=== PATIENT | female | born 1975 | race Caucasian/White ===

== ENCOUNTER 2021-11-02 16:33 | Emergency (ER) | payer MEDICARE, OTHER ==
[~2021-11-02] VITALS: Ht 175.3 cm; Wt 196.0 kg
[2021-11-02] MEDS ORDERED: GABAPENTIN300 MG PO (16:51)
[2021-11-02] MEDS ORDERED: SYMBICORT 80-10.2 GM INH ×2 (16:51→16:53)
[2021-11-02] MEDS ORDERED: IMITREX100 MG PO (16:52)
[2021-11-02] MEDS ORDERED: HYDROXYZINE HCL25 MG PO (16:52)
[2021-11-02] MEDS ORDERED: PROCHLORPERAZIN10 MG PO (16:52)
[2021-11-02] MEDS ORDERED: OMEPRAZOLE20 MG PO (16:53)
[2021-11-02] MEDS ORDERED: PRAZOSIN HCL5 MG PO (16:53)
[2021-11-02] MEDS ORDERED: CYCLOBENZAPRINE10 MG PO (16:53)
[2021-11-02] MEDS ORDERED: CYMBALTA60 MG PO (16:53)
[2021-11-02] MEDS ORDERED: LISINOPRIL10 MG PO (16:53)
[2021-11-02] MEDS ORDERED: VENTOLIN HFA18 GM INH (16:54)
[2021-11-02] MEDS ORDERED: ATORVASTATIN CA80 MG PO (16:54)
[2021-11-02] MEDS ORDERED: ARNUITY ELLIPT50 MCG IH (16:54)
[2021-11-02] MEDS ORDERED: NORTRIPTYLINE H75 MG PO (16:54)
[2021-11-02] MEDS ORDERED: DULOXETINE HCL60 MG PO (16:55)
[2021-11-02] MEDS ORDERED: PREDNISONE20 MG PO (18:35)
[2021-11-02] MEDS ORDERED: DOXYCYCLINE HY100 M3 PO (18:35)
== END 2021-11-02 18:46 | disposition home or self-care (01) ==
LOC: ED 16:33
DX: J44.9 Chronic obstructive pulmonary disease, unspecified (principal); I10 Essential (primary) hypertension; E78.5 Hyperlipidemia, unspecified; Z88.8 Allergy status to other drugs, medicaments and biological substances; Z79.899 Other long term (current) drug therapy
CPT/HCPCS: 71045; 94640; 99284-25; J1100; U0003

== ENCOUNTER 2023-07-31 06:36 | Day surgery (SDC) | payer MEDICARE, OTHER ==
[2023-07-27 08:15] VITALS: BP 143/83
[~2023-07-31] VITALS: Ht 175.3 cm; Wt 195.4 kg
[~2023-07-31 06:36] MED LIST: ARNUITY ELLIPT50 MCG IH; ATORVASTATIN CA80 MG PO; CYCLOBENZAPRINE10 MG PO; CYMBALTA60 MG PO; DOXYCYCLINE HY100 M3 PO; DULOXETINE HCL60 MG PO; GABAPENTIN300 MG PO; HYDROXYZINE HCL25 MG PO; IMITREX100 MG PO; LISINOPRIL10 MG PO; METFORMIN HCL500 M3 PO; NORTRIPTYLINE H75 MG PO; OMEPRAZOLE20 MG PO; PRAZOSIN HCL5 MG PO; PREDNISONE20 MG PO; PROCHLORPERAZIN10 MG PO; SYMBICORT 80-10.2 GM INH; VENTOLIN HFA18 GM INH
[2023-07-31 06:56] VITALS: BP 134/65
--- NOTE | 2023-07-31 09:01 | NUR ---
07/31/23 0901 Cleo Rodríguez 0840- PT ARRIVES TO PACU, REACTIVE TO STIMULI, SEMI MARTIN POSITION. PT STARTED COUGHING WITH PHLEGM, PT SAT UP AND SUCTIONED. TOLERATED WELL, SATS MAINTAINED MID 90'S WITH COUGHING. PT ON 2L O2 PER NC. ALL MONITORS APPLIED. ABD SOFT NON DISTENDED, LR INFUSING TO LFA. 0850- PT AWAKE AND HAVING CONVERSATION NOW. PT DRINKING APPLE JUICE, NO NAUSEA. PT PLACED ON ROOM AIR AT THIS TIME. 0900- PT DENIES PAIN AND NAUSEA. PT STATES "I'M WIDE AWAKE". VITAL SIGNS STABLE.
[2023-07-31 09:02] VITALS: BP 125/66
--- NOTE | 2023-07-31 10:10 | OR ---
[facility] [address], [place] [address] Signed DATE OF OPERATION: 07/31/2023 SURGEON: Sandy Munguia MD PREOPERATIVE DIAGNOSES: 1. Gastroesophageal reflux disease. 2. Nausea and vomiting. 3. Diabetes. 4. Obesity. POSTOPERATIVE DIAGNOSES: 1. Moderate sized hiatal hernia (43-37 cm). 2. GE junction at 37 cm. PROCEDURE: EGD with CLOtest and biopsies of the antrum. ESTIMATED BLOOD LOSS: None. INDICATIONS: Sowmya is a 48-year-old, obese, diabetic female, asked to see me for upper endoscopy. She has been having trouble with acid reflux and some nausea and vomiting. We had discussed the idea of diabetic gastroparesis. She is yet to have a solid phase gastric emptying scan. Her body mass index is 59. She had a colonoscopy in 2018 at the age of 43 at [facility] in [place], [place]. We do not have those results. She also had a laparoscopic cholecystectomy in [address] at the age of [address] Sarbjit Nunez at [facility] in [place], [place]. Dr. Nunez is now retired. Sowmya has a history of polysubstance abuse including methamphetamines. She asked that she did not receive any narcotics. She considers that a gateway drug for herself. In the office, I had given her a pamphlet on upper endoscopy. We had reviewed the nature of the test. There is risk including, but not limited to gas bloating, crampy abdominal pain, bleeding, perforation requiring surgery, and missed diagnosis. She also understands the need for monitored anesthesia care given her body mass index, very full face, heavy chest, neck and abdomen. She also understands without narcotics we would certainly need propofol infusion. In that regard, she received preoperative blood work and an EKG. She had expressed understanding and wished to proceed. PROCEDURE NOTE: Sowmya was taken into our endoscopy suite and placed in the supine semi-recumbent Electronically Signed By: SANDY MUNGUIA MD 07/31/23 1010 PATIENT NAME: SOWMYA OROZCO OPERATIVE REPORT DATE OF : 71 REPORT #: [id number] PHYSICIAN: SANDY MUNGUIA MD PCP: ERLINDA DUKES PA-C REPORT IS CONFIDENTIAL AND NOT TO BE RELEASED WITHOUT AUTHORIZATION [facility] [address], [place] [address] Signed position. The posterior oropharynx was anesthetized with lidocaine spray. She has very little in the way of . Our anesthesia provider used a mouth guard on the mandible. After this, a bite block was placed. She was given monitored anesthesia care with propofol infusion per our nurse speed operator. The adult gastroscope was introduced and advanced under direct visualization of the camera out into the duodenum. The duodenum and pyloric channel were unremarkable. Overall, the stomach really was unremarkable. We went ahead and took a biopsy from the antrum for pathologic review along with CLOtest. Upon retroflexion of the scope, we can easily see her moderate-sized hiatal hernia. It measured around 43-37 cm. However, she was a bit awake and moving around during the procedure. The scope was withdrawn up through the area of the GE junction, which was compliant without stricture. There were no gastric or esophageal varices. There was very minimal disruption to her Z-line. There was no Vieira's mucosa. No distal esophagitis. The middle and upper esophagus were unremarkable. After this, the gas was suctioned out and the gastroscope removed. Sowmya tolerated the procedure quite well. RECOMMENDATIONS: I will see Sowmya back in my office in 7 to 14 days to review her results. Her best option obviously would be to lose a significant amount of weight. Some of these patients do undergo gastric bypass surgery to correct the hiatal hernia as well as weight loss. Sandy Munguia MD ALB/MODL /[id number] cc: MACK Davila MD Copies: SANDY MUNGUIA MD ~ Electronically Signed By: SANDY MUNGUIA MD 07/31/23 1010 PATIENT NAME: SOWMYA OROZCO OPERATIVE REPORT DATE OF : 71 REPORT #: [id number] PHYSICIAN: SANDY MUNGUIA MD PCP: ERLINDA DUKES PA-C REPORT IS CONFIDENTIAL AND NOT TO BE RELEASED WITHOUT AUTHORIZATION
--- NOTE | 2023-07-31 11:23 | NUR ---
PT HOPEFUL FOR IDENTIFICATION OF CUASE OF DISCOMFORT. CONSENTED TO PRAYER. PRAYED FOR SUCCESSFUL PROCEDURE AND ONGOING HEALING.
--- NOTE | 2023-08-06 14:56 | PATH ---
[facility] [address] [place], [place] [address] Signed SPECIMEN(S): A ANTRUM/PYLORUS BIOPSY SPECIMEN SOURCE: A. ANTRUM/PYLORUS BIOPSY CLINICAL HISTORY: GERD, N/V, hiatal hernia. FINAL PATHOLOGIC DIAGNOSIS: Antrum/pylorus, biopsy: - Benign gastric type mucosa with focal slight chronic inflammation. - Negative for evidence of Helicobacter organisms on routine HE stain sections. JVR:cml MICROSCOPIC EXAMINATION: Histologic sections of all submitted blocks are examined by light microscopy. These findings, together with the gross examination, support the pathologic diagnosis. GROSS DESCRIPTION: The specimen, labeled and designated "Gideon Wang Nikita, stomach, antrum/pylorus biopsy," is received in formalin and consists of 1 white-jay soft tissue fragment measuring 0.3 x 0.4 cm is submitted entirely in (A1). MMA (under the direct supervision of a pathologist) The Gross Description was prepared using a voice recognition system. The report was reviewed for accuracy; however, sound-alike word errors, addition and/or deletions may occur. If there is any question about this report, please contact Client Services. PERFORMING LABORATORY: Technical component was performed by [email or web address], [address] [place] [id number] (CLIA# [id number]). Professional interpretation was performed by [facility], [address] [place] [id number] (CLIA#: [id number]). Diagnostician: Bill Wahl MD Pathologist Electronically Signed 08/06/2023 PATIENT NAME: MITZI OROZCO PATHOLOGY DATE OF : 71 REPORT #: [id number] PHYSICIAN: ANDREW INMAN PCP: ERLINDA DUKES PA-C REPORT IS CONFIDENTIAL AND NOT TO BE RELEASED WITHOUT AUTHORIZATION [address] [address] Signed Copies: ~ PATIENT NAME: MITZI OROZCO PATHOLOGY DATE OF : 71 REPORT #: [id number] PHYSICIAN: ANDREW PATHOLOGY PCP: ERLINDA DUKES PA-C REPORT IS CONFIDENTIAL AND NOT TO BE RELEASED WITHOUT AUTHORIZATION
== END 2023-07-31 09:20 | disposition home or self-care (01) ==
LOC: DS 06:36 → OPS 06:36 → DS 08:15 → OPS 09:20 → DS 09:45
PROVIDERS: ATTEND Colon & Rectal Surgery
PROC: 0DB68ZX Excision of Stomach, Via Natural or Artificial Opening Endoscopic, Diagnostic (ICD-10-PCS; principal; 2023-07-31 08:15)
DX: K21.9 Gastro-esophageal reflux disease without esophagitis (principal); K44.9 Diaphragmatic hernia without obstruction or gangrene; E66.9 Obesity, unspecified; E11.40 Type 2 diabetes mellitus with diabetic neuropathy, unspecified; E78.5 Hyperlipidemia, unspecified; Z68.43 Body mass index [BMI] 50.0-59.9, adult; J44.9 Chronic obstructive pulmonary disease, unspecified; Z88.5 Allergy status to narcotic agent; F41.9 Anxiety disorder, unspecified
CPT/HCPCS: 00731; 36415; 84703; 87077; J2704; J7121